=== PATIENT | male | born 1970 | race Caucasian/White ===

== ENCOUNTER 2022-05-18 18:44 | Emergency (ER) | payer MEDICAID, SELFPAY ==
[2022-05-18 19:05] VITALS: BP 125/81; PULSE 63; RESP 18; RESP 22; TEMP 36.7; TEMP 36.8; O2SAT 97; BMI 36.0
--- NOTE | 2022-05-18 19:16 | EXP.UTC ---
Discharge Plan Disposition Patient Disposition: Home, Self-Care Condition: Good Prescriptions Prescriptions: New cyclobenzaprine 10 mg Tablet 10 mg PO BID PRN (Reason: Muscle Spasm) Qty: 20 0RF methylprednisolone 4 mg Tablets,Dose Pack 4 mg PO DIRECTED Qty: 21 0RF Referrals Follow up/Referrals: Douglas Kapadia MD [Primary Care Provider] - See instructions Activity Restrictions/Add. Instructions Additional Instructions/Restrictions: Go home and rest. It would be best if you rested tomorrow too. No heavy lifting. No twisting. Take the oral medications as directed. The muscle relaxer (cyclobenzaprine--Flexeril) will make you drowsy, so don't drive or operate heavy machinery after taking it. They may help you get comfortable enough to sleep. Don't start the oral steroids (medrol dose pack) until tomorrow, since you had the shots in here today. Follow up with your regular doctor. GO TO THE ER FOR ANY WORSENING SYMPTOMS OR CONCERN, ESPECIALLY BOWEL OR BLADDER ISSUES, SADDLE AREA NUMBNESS, FEVER, ETC Clinical Impressions Clinical Impression: Radicular pain of right upper extremity Stand Alone Forms Stand Alone Forms: Work/School Release Instructions Patient Instructions: DI for Cervical Radiculopathy, DI for Shoulder Pain Discharge ED Provider: Nikhil Borja [facility] General Stated complaint: right shoulder pain, no accident Time Seen by Provider: 05/18/22 19:14 History of Present Illness Provider Complaint: He c/o right shoulder and arm pain that radiates down to his hand at times. HE denies any injury. He denies any chest pain. He has had pain like this in the past after he pulled something in his shoulder. That is what he thinks is happening now although he cannot identify any injury. Related Data Previous Rx's Medication Instructions Recorded cyclobenzaprine 10 mg tablet 10 mg PO BID PRN Muscle Spasm #20 05/18/22 tabs methylprednisolone 4 mg tablets in 4 mg PO DIRECTED #21 tabs 05/18/22 a dose pack Allergies Allergy/AdvReac Type Severity Reaction Status Date / Time No Known Allergies Allergy Verified 05/18/22 19:19 [facility] Disclaimer: The information contained in this section may have been updated after the patient was seen, as this information can be updated by other users. Social History Smoking Status: Never smoker alcohol intake: never current occupational status: employed Travel in the last 8 weeks: None ROS Obtained: Yes All systems reviewed & no additional complaints except as documented Constitutional Constitutional: Denies chills and Denies fever(s) Eyes Eyes: Denies eye discharge ENT Ears, Nose, Mouth, and Throat: Denies dizziness, Denies otalgia and Denies sore throat Cardiovascular Cardiovascular: Denies chest pain Respiratory Respiratory: Denies shortness of breath, Denies chest congestion, Denies cough, Denies stridor and Denies wheezing Gastrointestinal Gastrointestingal: Denies nausea or vomiting Musculoskeletal Musculoskeletal: Reports as per HPI Integumentary/Breasts Skin/Breast: Denies rash Neurologic Neurologic: Denies dizziness and Denies paresthesias Allergic/Immunologic Allergic/Immunologic: Denies wheezing Physical Exam General General appearance: alert and in no apparent distress Head Head exam: atraumatic, normocephalic and normal inspection Eye Eye exam: Present normal appearance, PERRL and EOMI ENT ENT exam: Present normal exam, normal oropharynx, mucous membranes moist, TM's normal bilaterally and normal external ear exam Neck Neck exam: Present normal inspection, full ROM and trachea midline; Absent meningismus or lymphadenopathy Chest Chest inspection: Present normal inspection and symmetric chest wall rise; Absent tenderness Respiratory Respiratory exam: Present normal lung sounds bilaterally; Absent respiratory distress Cardiovascular Cardiovasc
[2022-05-18 19:37] VITALS: BP 125/81; PULSE 63; RESP 22; TEMP 36.8; O2SAT 97
== END 2022-05-18 19:50 | disposition home or self-care (01) ==
PROVIDERS: Emergency Provider Nurse Practitioner Family; PCP Internal Medicine Adolescent Medicine
DX: M25.511 Pain in right shoulder (principal); M54.10 Radiculopathy, site unspecified
CPT/HCPCS: 96372; 99204; 99212; G0463

== ENCOUNTER 2022-06-23 10:14 | Emergency (ER) | payer MEDICAID, SELFPAY ==
[2022-06-23 10:23] VITALS: BP 123/74; PULSE 80; RESP 16; TEMP 37; O2SAT 98; BMI 36.0
--- NOTE | 2022-06-23 10:47 | EXP.UTC ---
Discharge Plan Disposition Patient Disposition: Home, Self-Care Condition: Good Prescriptions Prescriptions: New methylprednisolone [Medrol (Rafa)] 4 mg tablets,dose pack See Rx Instructions .Route .COMPLEX 6 Days Qty: 21 0RF Rx Instructions: taper pack; amoxicillin-pot clavulanate 875-125 mg Tablet 1 tab PO Q12H Qty: 20 0RF No Action cyclobenzaprine 10 mg Tablet 10 mg PO BID PRN (Reason: Muscle Spasm) Qty: 20 0RF methylprednisolone 4 mg Tablets,Dose Pack 4 mg PO DIRECTED Qty: 21 0RF Referrals Follow up/Referrals: Dougals Kapadia MD [Primary Care Provider] - See instructions Activity Restrictions/Add. Instructions Additional Instructions/Restrictions: *Monitor Temp, Over the counter Motrin or Tylenol as directed/as needed Tylenol every 4 hours and Motrin every 6 hours (as long as your family doctor has told you that you can take it) for fever or pain. and straight to ER if unable to lower temp less than 101.0 after medication given *Warm salt water gargles may help to soothe the throat *Throat Lozenges? *Warm fluids like tea with honey may help to soothe the throat? *Sleep elevated *Humidifier/Vaporizer Take medication as prescribed Follow up IMMEDIATELY for new or worsening symptoms or no Noticeable improvement over the next 48-72 hours. 911 for difficulty breathing or swallowing Clinical Impressions Clinical Impression: Sinusitis Qualifiers: Sinusitis location: unspecified location Chronicity: unspecified Qualified Code(s): J32.9 - Chronic sinusitis, unspecified Instructions Patient Instructions: Sinusitis, DI for Sinusitis Discharge ED Provider: Araceli Greenberg [facility] [place] General Stated complaint: Headache, congestion, sinus pressure Mode of Arrival: Ambulatory Source of Information: Patient Limitations: No Limitations Time Seen by Provider: 06/23/22 10:47 Description of Symptoms (Recalled from Triage Doc. by RN): pt c/o sinus pressure, congestion and green drainage. HEENT Symptoms (Recalled from RN notes): Yes Resp Symptoms (Recalled from RN notes): No Skin Symptoms (Recalled from RN notes): No MS Symptoms (Recalled from RN notes): No Functional Status (Recalled from RN notes): wnl History of Present Illness Provider Complaint: Patient states that she has been having sinus pain and pressure, greenish yellow drainage and headache for over a week that has got worse over the last 3 days States that today he was feeling worse so he came in Related Data Previous Rx's Medication Instructions Recorded cyclobenzaprine 10 mg tablet 10 mg PO BID PRN Muscle Spasm #20 05/18/22 tabs methylprednisolone 4 mg tablets in 4 mg PO DIRECTED #21 tabs 05/18/22 a dose pack amoxicillin 875 mg-potassium 1 tab PO Q12H #20 tabs 06/23/22 clavulanate 125 mg tablet methylprednisolone 4 mg tablets in See Rx Instructions .Route 06/23/22 a dose pack (Medrol (Rafa)) .COMPLEX 6 days #21 tabs Allergies Allergy/AdvReac Type Severity Reaction Status Date / Time No Known Allergies Allergy Verified 06/23/22 10:32 Worker's Comp Is this a Worker's Comp case?: [facility] Dis[facility]: The information contained in this section may have been updated after the patient was seen, as this information can be updated by other users. Social History (Updated 05/19/22 @ 08:35 by Nikhil Borja APRN) Smoking Status: Never smoker alcohol intake: never current occupational status: employed Travel in the last 8 weeks: None ROS Obtained: Yes All systems reviewed & no additional complaints except as documented and Yes Systems reviewed as appropriate & no additional complaints except as documented Constitutional Constitutional: Reports system reviewed and no additional complaints, except as documented, Reports as per HPI, Denies fever(s) and Reports headache(s) ENT Ears, Nose, Mouth, and Throat: Reports system reviewed and no additional complaints, except as documented,
[2022-06-23 11:06] VITALS: BP 123/74; PULSE 80; RESP 16; TEMP 37
== END 2022-06-23 11:07 | disposition home or self-care (01) ==
PROVIDERS: Emergency Provider Nurse Practitioner; PCP Internal Medicine Adolescent Medicine
DX: J01.90 Acute sinusitis, unspecified (principal)
CPT/HCPCS: 99212; 99214; G0463

== ENCOUNTER 2022-11-30 09:02 | Emergency (ER) | payer MEDICAID, SELFPAY ==
[2022-11-30 09:20] VITALS: BP 113/77; PULSE 68; RESP 18; TEMP 36.7; O2SAT 96; BMI 34.4
--- NOTE | 2022-11-30 09:40 | EXP.UTC ---
Discharge Plan Disposition Patient Disposition: Home, Self-Care Condition: Good Prescriptions Prescriptions: New benzonatate [benzonatate] 100 mg capsule 100 mg PO TIDP PRN (Reason: Cough) Qty: 30 0RF amoxicillin-pot clavulanate 875-125 mg Tablet 1 tab PO Q12H Qty: 20 0RF methylprednisolone 4 mg Tablets,Dose Pack 4 mg PO DIRECTED Qty: 21 0RF Referrals Follow up/Referrals: Douglas Kapadia MD [Primary Care Provider] - See instructions Activity Restrictions/Add. Instructions Additional Instructions/Restrictions: Drink plenty of fluids. Take tylenol or ibuprofen for pain or fever. Take the medications as directed. Follow up with your regular doctor. GO TO THE ER FOR ANY WORSENING SYMPTOMS Don't start the oral steroids until tomorrow, since you had the shot here today. Clinical Impressions Clinical Impression: Sinusitis Instructions Patient Instructions: Sinusitis, DI for Sinusitis, Ceftriaxone Injection, Dexamethasone Injection Discharge ED Provider: Nikhil Borja [facility] General Stated complaint: CONGESTION Time Seen by Provider: 11/30/22 09:40 History of Present Illness Provider Complaint: He states that for the past 4 days he has had sinus and chest congestion. Related Data Previous Rx's Medication Instructions Recorded amoxicillin 875 mg-potassium 1 tab PO Q12H #20 tabs 11/30/22 clavulanate 125 mg tablet benzonatate 100 mg capsule 100 mg PO TIDP PRN Cough #30 caps 11/30/22 methylprednisolone 4 mg tablets in 4 mg PO DIRECTED #21 tabs 11/30/22 a dose pack Allergies Allergy/AdvReac Type Severity Reaction Status Date / Time No Known Allergies Allergy Verified 11/30/22 09:48 [facility] Disclaimer: The information contained in this section may have been updated after the patient was seen, as this information can be updated by other users. Social History (Updated 05/19/22 @ 08:35 by Nikhil Borja APRN) Smoking Status: Never smoker alcohol intake: never current occupational status: employed Travel in the last 8 weeks: None ROS Obtained: Yes All systems reviewed & no additional complaints except as documented Constitutional Constitutional: Reports poor appetite Eyes Eyes: Reports system reviewed and no additional complaints, except as documented ENT Ears, Nose, Mouth, and Throat: Reports as per HPI Cardiovascular Cardiovascular: Reports system reviewed and no additional complaints, except as documented and Denies chest pain Respiratory Respiratory: Denies shortness of breath, Reports chest congestion, Reports cough, Denies stridor and Denies wheezing Gastrointestinal Gastrointestingal: Reports system reviewed and no additional complaints, except as documented; Denies abdominal pain, diarrhea or vomiting Musculoskeletal Musculoskeletal: Reports system reviewed and no additional complaints, except as documented and Denies arthralgias Integumentary/Breasts Skin/Breast: Reports system reviewed and no additional complaints, except as documented and Denies rash Neurologic Neurologic: Denies paresthesias Allergic/Immunologic Allergic/Immunologic: Denies wheezing Physical Exam General General appearance: alert and in no apparent distress Eye Eye exam: Present normal appearance, PERRL and EOMI ENT ENT exam: Present mucous membranes moist and normal external ear exam Expanded ENT Exam External ear exam: Present normal external inspection TM/Canal exam: Bilateral TM: erythema and bulging Nose exam: Absent sinus tenderness Nasal speculum exam: Bilateral: normal Mouth exam: Present normal external inspection; Absent drooling Teeth exam: Present normal inspection Throat exam: Present tonsillar erythema and tonsillomegaly Neck Neck exam: Present normal inspection, full ROM and trachea midline; Absent tenderness, lymphadenopathy or thyromegaly Chest Chest inspection: Present normal inspection and symmetric chest wall rise; Absent tenderness or rash
[2022-11-30 10:44] VITALS: BP 113/77; PULSE 68; RESP 18; TEMP 36.7; O2SAT 96
== END 2022-11-30 10:40 | disposition home or self-care (01) ==
PROVIDERS: Emergency Provider Nurse Practitioner Family; PCP Internal Medicine Adolescent Medicine
DX: J01.90 Acute sinusitis, unspecified (principal)
CPT/HCPCS: 96372; 99212; 99214; G0463; J0696

== ENCOUNTER 2023-04-21 11:37 | Emergency (ER) | payer BC, SELFPAY ==
[2023-04-21 12:05] VITALS: BP 125/72; PULSE 67; RESP 20; TEMP 36.6; O2SAT 100; BMI 35.0
--- NOTE | 2023-04-21 12:26 | ED_ITS ---
Discharge Plan Disposition Patient Disposition: Home, Self-Care Condition: Good Referrals Follow up/Referrals: Douglas Kapadia MD [Primary Care Provider] - See instructions Activity Restrictions/Add. Instructions Additional Instructions/Restrictions: Follow up with your Family Doctor on Monday as scheduled Return if needed Straight to ER if symptoms return or pain worsens, if you have any difficulty with urination, fever, redness, or noticiable bulge in groin area Clinical Impressions Clinical Impression: Strain of groin Instructions Patient Instructions: DI for Groin Strain, Groin Strain Discharge ED Provider: Araceli Greenberg [facility] [place] HPI General Stated complaint: lower stomach pain Mode of Arrival: Ambulatory Source of Information: Patient Limitations: No Limitations Time Seen by Provider: 04/21/23 12:26 Description of Symptoms (Recalled from Triage Doc. by RN): PATIENT C/O PAIN TO RLQ AND LOWER MIDDLE ABDOMINAL PAIN THAT STARTED AFTER HE LIFTED A WHEEL AT WORK LAST NIGHT. HE STATES THE PAIN STARTED IN RLQ INITIALLY, BUT HAS SINCE MOVED TO MID-LOWER ABDOMEN AND HAS BECOME LESS INTENSE. DENIES ANY PROBLEMS URINATING HEENT Symptoms (Recalled from RN notes): No Resp Symptoms (Recalled from RN notes): No Skin Symptoms (Recalled from RN notes): No MS Symptoms (Recalled from RN notes): No Functional Status (Recalled from RN notes): WNL History of Present Illness Provider Complaint: Patient states that he lifted a heavy wheel last night at work and felt something pull in his right groin area States that after that he was having sore achy like feeling that did move across his lower abdomen/pubic area but has since stopped States that he was worried he may have pulled something or may have a hernia so he came in to get it checked States that he is not having any pain right now and not noticed any lumps or bumps in that area Related Data Allergies Allergy/AdvReac Type Severity Reaction Status Date / Time No Known Allergies Allergy Verified 11/30/22 09:48 Worker's Comp Is this a Worker's Comp case?: No [facility] Disclaimer: The information contained in this section may have been updated after the patient was seen, as this information can be updated by other users. Social History (Updated 05/19/22 @ 08:35 by Nikhil Borja APRN) Smoking Status: Never smoker alcohol intake: never current occupational status: employed Travel in the last 8 weeks: None ROS Obtained: Yes All systems reviewed & no additional complaints except as documented and Yes Systems reviewed as appropriate & no additional complaints except as documented Constitutional Constitutional: Reports system reviewed and no additional complaints, except as documented and Reports as per HPI ENT Ears, Nose, Mouth, and Throat: Reports system reviewed and no additional complaints, except as documented and Reports as per HPI Cardiovascular Cardiovascular: Reports system reviewed and no additional complaints, except as documented and Reports as per HPI Respiratory Respiratory: Reports system reviewed and no additional complaints, except as documented and Reports as per HPI Gastrointestinal Gastrointestingal: Reports system reviewed and no additional complaints, except as documented, as per HPI and other Comments: Pain in right groin/lower abdomen/pubic area after lifting heavy wheel last night at work not having any pain now Physical Exam General General appearance: alert and in no apparent distress Respiratory Respiratory exam: Present normal lung sounds bilaterally; Absent respiratory distress or wheezes Cardiovascular Cardiovascular exam: Present regular rate, normal rhythm and normal heart sounds Abdominal Exam Abdominal exam: Present soft and normal bowel sounds; Absent distention, tenderness, guarding, rebound, pulsatile mass or hernia Comment: reports no longer having pain/ area palpated no hernia palpated denies pain with palpation Neurological Exam Neurological exam: Present alert, oriented X3 and normal gait Medical Decision Making Naveed Inquiry Pt receiving controlled substance: No Naveed was queried for this patient: No Vital Signs: 04/21/23 12:05 Temperature 97.9 F Temperature Source Oral Pulse Rate [Left Brachial] 67 Respiratory Rate 20 Blood Pressure [Left Arm] 125/72 Blood Pressure Mean [Left Arm] 89 Blood Pressure Source [Left Arm] Automatic Cuff Blood Pressure Position [Left Arm] Sitting 02 Sat by Pulse Oximetry 100 Oxygen Delivery Method Room Air Medical Decision Narrative: Patient states that he is no longer having any pain or discomfort Has appointment with PCP on Monday no hernia noted/palpated with exam discussed with patient and he advised he will follow up on Monday and not do any heavy lifting at work and will return if symptoms return or if he notices any swelling, discoloration, or lumps in area
[2023-04-21 12:35] VITALS: BP 125/72; PULSE 67; RESP 20; TEMP 36.6; O2SAT 100
[2023-04-21 12:39] LABS: Apearance,Urine Clear (Clear); Bilirubin,Urine Negative (Negative); Blood, Urine Negative (Negative); Color,Urine Yellow (Yellow); Glucose,Urine (UA) Negative (Negative); Ketones,Urine Negative (Negative); Protein,Urine Negative (Negative); Specific Gravity, Urine 1.025 (1.005-1.030); UTC Leukocyte Esterase,Urine Negative (Negative); UTC Nitrate,Urine Negative (Negative); Urobilinogen,Urine 0.2 EU/dl (0.2)
== END 2023-04-21 12:37 | disposition home or self-care (01) ==
PROVIDERS: Emergency Provider Nurse Practitioner; PCP Internal Medicine Adolescent Medicine
DX: S76.811A Strain of other specified muscles, fascia and tendons at thigh level, right thigh, initial encounter (principal); R10.31 Right lower quadrant pain; X50.0XXA Overexertion from strenuous movement or load, initial encounter; Y99.0 Civilian activity done for income or pay
CPT/HCPCS: 81003; 99212; 99213; G0463

== ENCOUNTER 2024-02-12 12:19 | Emergency (ER) | payer BC, SELFPAY ==
[2024-02-12 12:34] VITALS: BP 137/80; PULSE 64; RESP 18; TEMP 36.8; O2SAT 100; BMI 35.6
--- NOTE | 2024-02-12 12:45 | ED_ITS ---
Discharge Plan Disposition Patient Disposition: Home, Self-Care Condition: Good Prescriptions Prescriptions: New amoxicillin 500 mg tablet 500 mg PO BID 10 Days Qty: 20 0RF Referrals Follow up/Referrals: Douglas Kapadia MD [Primary Care Provider] - See instructions Activity Restrictions/Add. Instructions Additional Instructions/Restrictions: Follow-up with dentist as soon as possible Antibiotics as ordered Did not take leftover antibiotics Tylenol or ibuprofen as needed for pain and fever Return if symptoms worsen or no improvement Clinical Impressions Clinical Impression: Dental abscess Instructions Patient Instructions: Tooth Abscess Print Language Print Language: Unknown Discharge ED Provider: Giuseppe ([facility])Albert [facility] [place] H[place] General Stated complaint: Pain in L lower teeth Mode of Arrival: Ambulatory Source of Information: Patient Time Seen by Provider: 02/12/24 12:40 Description of Symptoms (Recalled from Triage Doc. by RN): LEFT LOWER TOOTH PAIN, HAS HAD FEVER AND CONGESTION WELL HEENT Symptoms (Recalled from RN notes): Yes Resp Symptoms (Recalled from RN notes): Yes Skin Symptoms (Recalled from RN notes): No MS Symptoms (Recalled from RN notes): No Functional Status (Recalled from RN notes): WNL History of Present Illness Provider Complaint: 53-year-old male presents for complaints of fever, tooth pain, and congestion since Monday. Patient states he has been coughing up thick yellow sputum and lower dental pain since for few days with fever. Patient states he took 2 of his antibiotics he had leftover at home and fever broke and feels he needs some more antibiotics. Patient states the lymph nodes under his jaw are tender swollen. Related Data Previous Rx's ?Medication ?Instructions ?Recorded amoxicillin 500 mg tablet 500 mg PO BID 10 days #20 tabs 02/12/24 Allergies Allergy/AdvReac Type Severity Reaction Status Date / Time No Known Allergies Allergy Verified 11/30/22 09:48 Worker's Comp Is this a Worker's Comp case?: No [facility] Disclaimer: The information contained in this section may have been updated after the patient was seen, as this information can be updated by other users. Social History (Reviewed 02/12/24 @ 12:48 by Albert Chin ([facility]), PROVIDER RELATIONS COORDINATOR) Smoking Status: Never smoker alcohol intake: never current occupational status: employed Travel in the last 8 weeks: None Have you lived/traveled outside [place] in past 30 days?: No Contact w/someone who lives/traveled outside [place] past 30 days?: No Exposure to someone with infectious disease in past 14 days?: No Do you have a fever (greater than 100.4 F or 38 C)?: No Have you tested positive for COVID-19: No Exposed to someone with COVID-19 in past 14 days?: No Do you have a sore throat?: No Do you have a cough?: No Do you have any weakness?: No Do you have any diarrhea?: No Are you experiencing any unusual bleeding?: No Do you have any muscle aches/pain?: No Do you have any abdominal pain?: No Are you experiencing loss of taste or smell?: No ROS Obtained: Yes Systems reviewed as appropriate & no additional complaints except as documented Physical Exam General General appearance: alert and in no apparent distress Eye Eye exam: Present normal appearance and PERRL ENT ENT exam: Present mucous membranes moist and TM's normal bilaterally Expanded ENT Exam Teeth numbered Image: 2 1. Fractured (Decayed to the gumline, redness) and Dental Tenderness Neck Neck exam: Present tenderness and lymphadenopathy (Enlarged tender lymph nodes under mandible) Respiratory Respiratory exam: Present normal lung sounds bilaterally Cardiovascular Cardiovascular exam: Present regular rate and normal rhythm Neurological Exam Neurological exam: Present alert and oriented X3 Skin Skin exam: Present warm and intact Medical Decision Making Medical Records Medical records reviewed: Yes I reviewed the patient's medical records. Screening: Per USPSTF and CDC recommendations, given the prevalence of disease in our region, it is our hospital?s policy to screen for HIV and viral Hepatitis for all patients aged 18 and over and those with ongoing risk factors. Naveed Inquiry Pt receiving controlled substance: No Vital Signs: 02/12/24 12:34 Temperature 98.3 F Temperature Source Oral Pulse Rate [Left Radial] 64 Respiratory Rate 18 Blood Pressure [Left Arm] 137/80 Blood Pressure Mean [Left Arm] 99 02 Sat by Pulse Oximetry 100 Medical Decision Narrative: In summary patient is a 53-year-old male who presents to the urgent treatment center for complaints of dental pain, pain and tender lymph nodes under her jaw, congestion and fever. Patient states he took 2 leftover antibiotics he had at home and fever has broken but thinks he needs a few more days of antibiotics for his tooth. Patient is hemodynamically stable upon arrival, afebrile. On physical exam lymph nodes under mandible tender and swollen, tooth on left lower jaw decayed to the gumline with redness noted. Differential diagnosis includes dental abscess, upper respiratory infection, flu. Initial workup will be conducted with flu swab. Initial inventions include flu swab negative. Initial workup reviewed by me flu swab negative. Given this patient appropriate for discharge will discharge home with 10-day course of amoxicillin needs to call obtain a dental appointment as soon as possible.
[2024-02-12 12:46] LABS: UTC Influenza A Antigen Negative (Negative)
[2024-02-12 12:47] LABS: UTC Influenza B Antigen Negative (Negative)
[2024-02-12 12:54] VITALS: BP 137/80; PULSE 64; RESP 18; TEMP 36.8
== END 2024-02-12 12:56 | disposition home or self-care (01) ==
PROVIDERS: Emergency Provider Nurse Practitioner Family; PCP Internal Medicine Adolescent Medicine
DX: K04.7 Periapical abscess without sinus (principal)
CPT/HCPCS: 87804; 99213; G0381